=== PATIENT | male | born 1980 | race African-American/Black ===

== ENCOUNTER 2019-08-20 21:16 | Emergency (ER) | payer OTHER ==
[~2019-08-20] VITALS: Ht 182.9 cm; Wt 81.8 kg
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
[2019-08-20 23:09] LABS: MEAN CORPUSCULAR HEMOGLOBIN 31.4 pg (27.5-34.5); MEAN CORPUSCULAR VOLUME 95.1 fL (81-97); MEAN PLATELET VOLUME 9.8 fL (7.4-10.4); PLATELET COUNT 243 x10^3/uL (130-400); RED BLOOD COUNT 5.13 x10^6/uL (4.38-5.82); RED CELL DISTRIBUTION WIDTH 13.2 % (9.4-14.8)
[2019-08-20 23:14] LABS: ALBUMIN 4.1 g/dL (3.4-5.0); ANION GAP 9 mmol/L (5-15); CALCIUM 8.4 mg/dL (8.5-10.1); CHLORIDE 113 mmol/L (98-107)
--- NOTE | 2019-08-20 23:15 | NUR ---
REPORTED TO LISA SPARKS.
[2019-08-20 23:18] LABS: SALICYLATE LEVEL < 1.7 mg/dL (2.8-20.0)
[2019-08-20 23:29] LABS: BASOPHILS # (AUTO) 0.02 x10^3/uL (0-0.1); BASOPHILS % (AUTO) 0 % (0-1); EOSINOPHILS # (AUTO) 0.13 x10^3/uL (0-0.4); EOSINOPHILS % (AUTO) 2 % (1-7); LYMPHOCYTES # (AUTO) 2.12 x10^3/uL (1-3.4); LYMPHOCYTES % (AUTO) 33 % (22-44); MD MORPH REVIEW ONLY; MONOCYTES # (AUTO) 0.36 x10^3/uL (0.2-0.8); MONOCYTES % (AUTO) 6 % (2-9); NEUTROPHILS # (AUTO) 3.87 x10^3/uL (1.8-6.8); NEUTROPHILS % (AUTO) 60 % (42-75)
[2019-08-20 23:31] LABS: <PLATELET ESTIMATE> ADEQUATE; <RBC MORPHOLOGY> NORMAL; LARGE PLATELETS 1+
[2019-08-20 23:32] LABS: GIANT PLATELETS 1+
--- NOTE | 2019-08-21 01:35 | NUR ---
REPORT RECEIVED FROM CLARE GONZALEZ. ASSUMED CARE OF PT. PT SLEEPING ON GURNEY IN NAD, RESPIRATIONS EVEN AND UNLABORED. VITALS STABLE. WILL CONTINUE TO MONITOR.
--- NOTE | 2019-08-21 02:40 | NUR ---
PT CONTINUES TO SLEEP. RESPIRATIONS EVEN AND UNLABORED. ALL VITALS STABLE. WILL CONTINUE TO MONITOR.
[2019-08-21 04:06] VITALS: BP 131/74
--- NOTE | 2019-08-21 04:06 | NUR ---
PT AWOKEN. DISCUSSED CARE. PT STATES READY TO LEAVE. PT AMBULATES WITH STEADY GAIT. IV REMOVED.
== END 2019-08-21 04:08 | disposition home or self-care (01) ==
LOC: ED 22:52
DX: F10.120 Alcohol abuse with intoxication, uncomplicated (principal); G31.2 Degeneration of nervous system due to alcohol; I10 Essential (primary) hypertension; Y90.0 Blood alcohol level of less than 20 mg/100 ml
CPT/HCPCS: 80048; 80307; 82040; 85025; 99283

== ENCOUNTER 2021-03-30 14:43 | Emergency (ER) | payer OTHER ==
[~2021-03-30] VITALS: Ht 188 cm; Wt 108.2 kg
[2021-03-30 14:46] VITALS: BP 163/100
== END 2021-03-30 15:35 | disposition home or self-care (01) ==
LOC: ED 15:29
DX: K02.9 Dental caries, unspecified (principal); I10 Essential (primary) hypertension; F17.210 Nicotine dependence, cigarettes, uncomplicated
CPT/HCPCS: 64400; 99284